=== PATIENT | female | born 1970 | race Caucasian/White ===

== ENCOUNTER 2022-02-16 14:36 | Emergency (ER) | payer MEDICARE, MEDICAID ==
[2022-02-16] MEDS ORDERED: Ketorolac 30 MG/ML SDV IM ONE (15:24)
== END 2022-02-16 16:39 | disposition home or self-care (01) ==
LOC: LL.ED 14:36
DX: M25.561 Pain in right knee (principal); J44.1 Chronic obstructive pulmonary disease with (acute) exacerbation; F17.210 Nicotine dependence, cigarettes, uncomplicated; E66.9 Obesity, unspecified; Z68.41 Body mass index [BMI] 40.0-44.9, adult; Z88.0 Allergy status to penicillin
CPT/HCPCS: 73562-RT; 96372; 99283-25; 99284; J1885

== ENCOUNTER 2023-06-23 12:23 | Inpatient (IN) | payer MEDICARE, MEDICAID ==
[2023-06-23 12:39] LABS: BASOPHILS ABSOLUTE AUTO 0.05 K/uL (0.00-0.20); BASOPHILS PERCENT AUTO 0.4 % (0.0-2.0); EOSINOPHILS ABSOLUTE AUTO 0.09 K/uL (0.00-0.50); EOSINOPHILS PERCENT AUTO 0.8 % (0.0-5.0); HEMATOCRIT 43.2 % (34.0-46.0); HEMOGLOBIN 14.3 g/dL (11.7-15.5); LYMPHOCYTES ABSOLUTE AUTO 1.43 K/uL (0.50-3.50); LYMPHOCYTES PERCENT AUTO 12.2 % (10.0-50.0); MEAN CORPUSCULAR HEMOGLOBIN 29.5 pg (28.2-33.3); MEAN CORPUSCULAR HGB CONC 33.1 g/dL (31.7-36.0); MEAN CORPUSCULAR VOLUME 89.3 fL (84.0-98.0); MONOCYTES ABSOLUTE AUTO 1.41 K/uL (0.00-1.00); NEUTROPHILS ABSOLUTE AUTO 8.75 K/uL (1.40-7.00); NEUTROPHILS PERCENT AUTO 74.6 % (45.0-80.0); PLATELET COUNT,PLT 312 K/uL (150-350); RED BLOOD CELL COUNT 4.84 M/uL (3.77-5.09); RED CELL DISTRIBUTION WIDTH 13.1 % (11.2-14.1); WHITE BLOOD CELL COUNT,WBC 11.7 K/uL (4.0-10.2)
[2023-06-23 12:48] LABS: ALANINE AMINOTRANSFERASE,ALT 14 U/L (12-78); ALBUMIN 3.3 g/dL (3.4-5.0); ALKALINE PHOSPHATASE 129 IU/L (46-116); ASPARTATE AMNIOTRANSFERASE,AST 10 U/L (15-37); BILIRUBIN TOTAL 0.4 mg/dL (0.2-1.0); BLOOD UREA NITROGEN,BUN 6 mg/dL (7-18); CALCIUM 9.3 mg/dL (8.5-10.1); CARBON DIOXIDE,CO2 31.6 mmol/L (21.0-32.0); CHLORIDE,CL 96 mmol/L (98-107); CREATININE 0.81 mg/dL (0.51-1.17); GLUCOSE RANDOM 173 mg/dL (70-99); MAGNESIUM 1.7 mg/dL (1.8-2.4); POTASSIUM,K 3.2 mmol/L (3.5-5.1); PROTEIN TOTAL,TP 8.1 g/dL (6.4-8.2); SODIUM,NA 137 mmol/L (136-145)
[2023-06-23 12:49] LABS: ANION GAP 12.6 meq/L (7-15); ESTIMATED GFR 87 mL/min (>=60)
[2023-06-23] MEDS ORDERED: methylPREDNISolone Sodium Succinate 125 MG/2 ML SDV IVPUSH ONE ×2 (13:00→20:59)
[2023-06-23] MEDS ORDERED: Azithromycin 500 MG in Sodium Chloride 0.9% 250 ML IV ONE (13:00)
[2023-06-23] MEDS ORDERED: Albuterol/Ipratropium 3.0-0.5 MG/3 ML Neb Soln NEB ONE (13:00)
[2023-06-23] MEDS ORDERED: Potassium Bicarbonate/Cit Ac 20 MEQ Effervescent Tab PO ONE (13:01)
[2023-06-23] MEDS ORDERED: Acetaminophen 325 MG Tab PO ONE (13:51)
[2023-06-23] MEDS: Sodium Chloride 0.9% 10 ML Syringe FLUSH PRN ×4 (14:02→15:55)
[2023-06-23 14:10] LABS: CORONAVIRUS COVID-19 NAA NEGATIVE (NEGATIVE); INFLUENZA A NAA NEGATIVE (NEGATIVE); INFLUENZA B NAA NEGATIVE (NEGATIVE); RESPIRATORY SYNCYTIAL VIR NAA NEGATIVE (NEGATIVE)
[2023-06-23 14:27] LABS: O2 DELIVERY DEVICE NASAL CANNULA
[2023-06-23 14:28] LABS: PCO2 ARTERIAL 40 mmHG (35-45); PH,ARTERIAL 7.46 (7.35-7.45)
[2023-06-23] MEDS: Benzonatate 100 MG Cap PO PRN (14:28)
[2023-06-23 14:30] LABS: BASE EXCESS ARTERIAL 5 mmol/L (-2-3); BICARBONATE,ARTERIAL 28.7 mmol/L (22-26); O2 SATURATION ARTERIAL 94 % (95-98); PO2 ARTERIAL 68 mmHG (80-105)
[2023-06-23] MEDS ORDERED: Iopamidol 755 Mg/ML 100 ML Bottle IVPUSH ONE ×2 (15:29→15:30)
[2023-06-23] MEDS ORDERED: LORazepam 2 MG/ML SDV IVPUSH ONE (15:41)
[2023-06-23] MEDS ORDERED: Ondansetron 4 MG/2 ML SDV IVPUSH ONE (15:43)
[2023-06-23 17:26] LABS: APPEARANCE,URINE CLEAR; BILIRUBIN,URINE NEGATIVE (NEGATIVE); COLOR,URINE YELLOW; GLUCOSE,URINE 100 mg/dL (NEGATIVE); KETONES,URINE 40 mg/dL (NEGATIVE); LEUKOCYTE ESTERASE,URINE NEGATIVE (NEGATIVE); NITRITE,URINE NEGATIVE (NEGATIVE); OCCULT BLOOD,URINE SMALL (NEGATIVE); PROTEIN,URINE 100 mg/dL (NEGATIVE)
[2023-06-23 17:27] LABS: BACTERIA,URINE NOT SEEN /HPF (NONE TO FEW); EPITHELIAL CELLS,URINE NOT SEEN /LPF; MUCUS,URINE RARE /LPF (NEGATIVE); WBC,URINE 0-5 /HPF
[2023-06-23] MEDS ORDERED: cefTRIAXone 1 GM in Sodium Chloride 0.9% 100 ML IV ONE (21:02)
[2023-06-23] MEDS ORDERED: Ondansetron 4 MG/2 ML SDV IVPUSH PRN (21:04)
[2023-06-23] MEDS ORDERED: Albuterol/Ipratropium 3.0-0.5 MG/3 ML Neb Soln ONE (22:29)
[2023-06-23] MEDS: Albuterol/Ipratropium 3.0-0.5 MG/3 ML Neb Soln NEB SCH (22:30)
[2023-06-23] MEDS: Acetaminophen 325 MG Tab PO PRN (22:43)
[2023-06-23] MEDS: Ketorolac 15 MG/ML SDV IVPUSH ONE (23:10)
[2023-06-24] MEDS: Nicotine 14 MG/24 Hr Patch TRDERM SCH ×2 (00:19→07:19)
[2023-06-24] MEDS: Albuterol/Ipratropium 3.0-0.5 MG/3 ML Neb Soln NEB SCH ×4 (01:51→19:30)
[2023-06-24] MEDS ORDERED: Ketorolac 15 MG/ML SDV ONE (05:12)
[2023-06-24] MEDS: Sodium Chloride 0.9% 10 ML Syringe FLUSH PRN ×3 (05:14→11:43)
[2023-06-24] MEDS: Ketorolac 15 MG/ML SDV IVPUSH ONE (05:14)
[2023-06-24] MEDS ORDERED: traMADol 50 MG Tab PO PRN (07:04)
[2023-06-24] MEDS: Azithromycin 500 MG in Sodium Chloride 0.9% 250 ML IV SCH (07:17)
[2023-06-24] MEDS: methylPREDNISolone Sodium Succinate 125 MG/2 ML SDV IVPUSH SCH (07:18)
[2023-06-24] MEDS: Enoxaparin 40 MG/0.4 ML Syringe SUBCUT SCH (07:18)
[2023-06-24] MEDS: metFORMIN 500 MG Tab PO SCH ×2 (07:19→18:56)
[2023-06-24] MEDS: Acetaminophen 325 MG Tab PO PRN (07:25)
[2023-06-24 07:56] LABS: CALCIUM 9.4 mg/dL (8.5-10.1); CARBON DIOXIDE,CO2 31.9 mmol/L (21.0-32.0); CREATININE 0.83 mg/dL (0.51-1.17); EST CRCL DRUG DOSING (CG) 65.59 mL/min; POTASSIUM,K 3.9 mmol/L (3.5-5.1)
[2023-06-24 08:04] LABS: BASOPHILS ABSOLUTE AUTO 0.02 K/uL (0.00-0.20); BASOPHILS PERCENT AUTO 0.2 % (0.0-2.0); HEMATOCRIT 41.3 % (34.0-46.0); HEMOGLOBIN 13.5 g/dL (11.7-15.5); LYMPHOCYTES ABSOLUTE AUTO 1.35 K/uL (0.50-3.50); LYMPHOCYTES PERCENT AUTO 13.4 % (10.0-50.0); MEAN CORPUSCULAR HEMOGLOBIN 29.6 pg (28.2-33.3); MEAN CORPUSCULAR HGB CONC 32.7 g/dL (31.7-36.0); MEAN CORPUSCULAR VOLUME 90.6 fL (84.0-98.0); MONOCYTES ABSOLUTE AUTO 0.48 K/uL (0.00-1.00); MONOCYTES PERCENT AUTO 4.8 % (2.0-14.0); NEUTROPHILS ABSOLUTE AUTO 8.23 K/uL (1.40-7.00); NEUTROPHILS PERCENT AUTO 81.6 % (45.0-80.0); PLATELET COUNT,PLT 299 K/uL (150-350); RED BLOOD CELL COUNT 4.56 M/uL (3.77-5.09); RED CELL DISTRIBUTION WIDTH 13.1 % (11.2-14.1); WHITE BLOOD CELL COUNT,WBC 10.1 K/uL (4.0-10.2)
[2023-06-24] MEDS: cefTRIAXone 1 GM in Sodium Chloride 0.9% 100 ML IV SCH (11:43)
[2023-06-24] MEDS ORDERED: Losartan 25 MG Tab PO ONE (16:30)
[2023-06-24] MEDS: Losartan 25 MG Tab PO SCH (16:58)
[2023-06-24] MEDS ORDERED: atorvaSTATin 40 MG Tab PO SCH (20:00)
[2023-06-24] MEDS ORDERED: Glucagon,Human Recombinant 1 MG Vial IM PRN (23:28)
[2023-06-24] MEDS ORDERED: 50% Dextrose in Water 50 ML Syringe IVPUSH PRN (23:28)
[2023-06-25] MEDS: oxyCODONE 5 MG Tab PO PRN ×2 (00:22→23:27)
[2023-06-25] MEDS: Albuterol/Ipratropium 3.0-0.5 MG/3 ML Neb Soln NEB SCH ×4 (01:00→19:28)
[2023-06-25] MEDS ORDERED: LORazepam 0.5 MG Tab PO PRN (04:00)
[2023-06-25] MEDS: Benzonatate 100 MG Cap PO PRN (06:28)
[2023-06-25] MEDS: Azithromycin 500 MG in Sodium Chloride 0.9% 250 ML IV SCH (07:54)
[2023-06-25] MEDS: Enoxaparin 40 MG/0.4 ML Syringe SUBCUT SCH (08:01)
[2023-06-25] MEDS: methylPREDNISolone Sodium Succinate 125 MG/2 ML SDV IVPUSH SCH (08:02)
[2023-06-25] MEDS: Sodium Chloride 0.9% 10 ML Syringe FLUSH PRN ×2 (08:05→11:45)
[2023-06-25] MEDS: Nicotine 14 MG/24 Hr Patch TRDERM SCH (08:09)
[2023-06-25] MEDS: Insulin Regular, Human 100 Units/ML 3 ML Vial SUBCUT SCH ×3 (08:12→17:57)
[2023-06-25] MEDS: Losartan 25 MG Tab PO SCH (08:18)
[2023-06-25 08:33] LABS: BASOPHILS ABSOLUTE AUTO 0.02 K/uL (0.00-0.20); BASOPHILS PERCENT AUTO 0.1 % (0.0-2.0); EOSINOPHILS ABSOLUTE AUTO 0.01 K/uL (0.00-0.50); EOSINOPHILS PERCENT AUTO 0.1 % (0.0-5.0); HEMATOCRIT 42.8 % (34.0-46.0); HEMOGLOBIN 13.6 g/dL (11.7-15.5); LYMPHOCYTES ABSOLUTE AUTO 4.22 K/uL (0.50-3.50); LYMPHOCYTES PERCENT AUTO 22.9 % (10.0-50.0); MEAN CORPUSCULAR HEMOGLOBIN 29.2 pg (28.2-33.3); MEAN CORPUSCULAR HGB CONC 31.8 g/dL (31.7-36.0); MEAN CORPUSCULAR VOLUME 91.8 fL (84.0-98.0); NEUTROPHILS ABSOLUTE AUTO 12.91 K/uL (1.40-7.00); NEUTROPHILS PERCENT AUTO 69.9 % (45.0-80.0); PLATELET COUNT,PLT 348 K/uL (150-350); RED BLOOD CELL COUNT 4.66 M/uL (3.77-5.09); RED CELL DISTRIBUTION WIDTH 13.3 % (11.2-14.1); WHITE BLOOD CELL COUNT,WBC 18.5 K/uL (4.0-10.2)
[2023-06-25 08:40] LABS: CALCIUM 9.5 mg/dL (8.5-10.1); CARBON DIOXIDE,CO2 35.7 mmol/L (21.0-32.0); CREATININE 0.79 mg/dL (0.51-1.17); EST CRCL DRUG DOSING (CG) 68.91 mL/min; MAGNESIUM 1.9 mg/dL (1.8-2.4); POTASSIUM,K 4.1 mmol/L (3.5-5.1)
[2023-06-25 08:41] LABS: ANION GAP 6.4 meq/L (7-15)
[2023-06-25] MEDS: Ketorolac 15 MG/ML SDV IVPUSH SCH ×2 (09:14→19:22)
[2023-06-25] MEDS: cefTRIAXone 1 GM in Sodium Chloride 0.9% 100 ML IV SCH (11:43)
[2023-06-26] MEDS: Albuterol/Ipratropium 3.0-0.5 MG/3 ML Neb Soln NEB SCH ×4 (03:57→20:18)
[2023-06-26 07:33] LABS: BASOPHILS ABSOLUTE AUTO 0.02 K/uL (0.00-0.20); BASOPHILS PERCENT AUTO 0.1 % (0.0-2.0); EOSINOPHILS ABSOLUTE AUTO 0.04 K/uL (0.00-0.50); EOSINOPHILS PERCENT AUTO 0.2 % (0.0-5.0); HEMATOCRIT 41.9 % (34.0-46.0); HEMOGLOBIN 13.5 g/dL (11.7-15.5); LYMPHOCYTES ABSOLUTE AUTO 4.98 K/uL (0.50-3.50); MEAN CORPUSCULAR HEMOGLOBIN 29.4 pg (28.2-33.3); MEAN CORPUSCULAR HGB CONC 32.2 g/dL (31.7-36.0); MEAN CORPUSCULAR VOLUME 91.3 fL (84.0-98.0); MONOCYTES ABSOLUTE AUTO 1.43 K/uL (0.00-1.00); MONOCYTES PERCENT AUTO 8.3 % (2.0-14.0); NEUTROPHILS ABSOLUTE AUTO 10.71 K/uL (1.40-7.00); NEUTROPHILS PERCENT AUTO 62.4 % (45.0-80.0); PLATELET COUNT,PLT 326 K/uL (150-350); RED BLOOD CELL COUNT 4.59 M/uL (3.77-5.09); RED CELL DISTRIBUTION WIDTH 13.1 % (11.2-14.1); WHITE BLOOD CELL COUNT,WBC 17.2 K/uL (4.0-10.2)
[2023-06-26] MEDS: metFORMIN 500 MG Tab PO SCH ×2 (07:38→17:45)
[2023-06-26] MEDS: methylPREDNISolone Sodium Succinate 125 MG/2 ML SDV IVPUSH SCH (07:38)
[2023-06-26] MEDS: Enoxaparin 40 MG/0.4 ML Syringe SUBCUT SCH (07:38)
[2023-06-26] MEDS: Azithromycin 500 MG in Sodium Chloride 0.9% 250 ML IV SCH (07:38)
[2023-06-26] MEDS: Sodium Chloride 0.9% 10 ML Syringe FLUSH PRN ×3 (07:39→20:19)
[2023-06-26] MEDS: Benzonatate 100 MG Cap PO PRN (07:39)
[2023-06-26] MEDS: Ketorolac 15 MG/ML SDV IVPUSH SCH ×2 (07:39→20:19)
[2023-06-26] MEDS: Losartan 25 MG Tab PO SCH (07:40)
[2023-06-26] MEDS: Nicotine 14 MG/24 Hr Patch TRDERM SCH (07:42)
[2023-06-26 07:52] LABS: ANION GAP 7.5 meq/L (7-15); CALCIUM 8.9 mg/dL (8.5-10.1); CARBON DIOXIDE,CO2 33.7 mmol/L (21.0-32.0); CREATININE 0.7 mg/dL (0.51-1.17); EST CRCL DRUG DOSING (CG) 77.77 mL/min; POTASSIUM,K 4.2 mmol/L (3.5-5.1)
[2023-06-26] MEDS: Insulin Regular, Human 100 Units/ML 3 ML Vial SUBCUT SCH ×3 (08:01→18:08)
[2023-06-26 09:41] LABS: PCO2 ARTERIAL,POC 46 mmHg (35-48); PH ARTERIAL,POC 7.4 pH (7.35-7.45); PO2 ARTERIAL,POC 63 mmHg (83-108)
[2023-06-26 09:42] LABS: BASE EXCESS ARTERIAL,POC 4 mmol/L (-2-3); HCO3 ARTERIAL,POC 29.3 mmol/L (22-26); O2 SATURATION ARTERIAL,POC 91.8 % (95-98); TCO2 ARTERIAL,POC 29.2 mmol/L (23-27)
[2023-06-26] MEDS: cefTRIAXone 1 GM in Sodium Chloride 0.9% 100 ML IV SCH (12:04)
[2023-06-26] MEDS ORDERED: Losartan 50 MG Tab PO ONE (13:25)
[2023-06-26] MEDS: guaiFENesin 600 MG Tab.ER PO SCH ×2 (14:09→20:18)
[2023-06-26] MEDS: oxyCODONE 5 MG Tab PO PRN (14:12)
[2023-06-26] MEDS: Acetaminophen 325 MG Tab PO PRN (14:13)
[2023-06-26 14:28] LABS: HEMOGLOBIN A1C 7.7 % (4.3-5.7)
[2023-06-27] MEDS: Albuterol/Ipratropium 3.0-0.5 MG/3 ML Neb Soln NEB SCH ×2 (04:06→07:40)
[2023-06-27] MEDS: Azithromycin 500 MG in Sodium Chloride 0.9% 250 ML IV SCH (07:30)
[2023-06-27] MEDS: Sodium Chloride 0.9% 10 ML Syringe FLUSH PRN ×3 (07:30→10:01)
[2023-06-27] MEDS: methylPREDNISolone Sodium Succinate 125 MG/2 ML SDV IVPUSH SCH (07:32)
[2023-06-27] MEDS: Enoxaparin 40 MG/0.4 ML Syringe SUBCUT SCH (07:36)
[2023-06-27] MEDS: metFORMIN 500 MG Tab PO SCH (07:37)
[2023-06-27] MEDS: guaiFENesin 600 MG Tab.ER PO SCH (07:38)
[2023-06-27] MEDS: Insulin Regular, Human 100 Units/ML 3 ML Vial SUBCUT SCH (07:38)
[2023-06-27 07:49] LABS: BASOPHILS ABSOLUTE AUTO 0.02 K/uL (0.00-0.20); BASOPHILS PERCENT AUTO 0.1 % (0.0-2.0); EOSINOPHILS PERCENT AUTO 0.5 % (0.0-5.0); HEMATOCRIT 42.9 % (34.0-46.0); HEMOGLOBIN 13.7 g/dL (11.7-15.5); LYMPHOCYTES ABSOLUTE AUTO 5.71 K/uL (0.50-3.50); MEAN CORPUSCULAR HGB CONC 31.9 g/dL (31.7-36.0); MEAN CORPUSCULAR VOLUME 90.7 fL (84.0-98.0); MONOCYTES ABSOLUTE AUTO 1.44 K/uL (0.00-1.00); MONOCYTES PERCENT AUTO 7.8 % (2.0-14.0); NEUTROPHILS ABSOLUTE AUTO 11.13 K/uL (1.40-7.00); NEUTROPHILS PERCENT AUTO 60.6 % (45.0-80.0); PLATELET COUNT,PLT 356 K/uL (150-350); RED BLOOD CELL COUNT 4.73 M/uL (3.77-5.09); RED CELL DISTRIBUTION WIDTH 13.2 % (11.2-14.1); WHITE BLOOD CELL COUNT,WBC 18.4 K/uL (4.0-10.2)
[2023-06-27] MEDS: Nicotine 14 MG/24 Hr Patch TRDERM SCH (07:56)
[2023-06-27] MEDS: Ketorolac 15 MG/ML SDV IVPUSH SCH (07:57)
[2023-06-27] MEDS ORDERED: Losartan 25 MG Tab PO SCH (08:00)
[2023-06-27 08:12] LABS: CALCIUM 8.7 mg/dL (8.5-10.1); CARBON DIOXIDE,CO2 32.1 mmol/L (21.0-32.0); CREATININE 0.74 mg/dL (0.51-1.17); EST CRCL DRUG DOSING (CG) 73.56 mL/min; MAGNESIUM 1.7 mg/dL (1.8-2.4); POTASSIUM,K 4.1 mmol/L (3.5-5.1)
[2023-06-27] MEDS: cefTRIAXone 1 GM in Sodium Chloride 0.9% 100 ML IV SCH (09:59)
== END 2023-06-27 11:05 | disposition home or self-care (01) | DRG 193 ==
LOC: LL.ED 12:23 → LL.MS 19:55
PROVIDERS: ADMIT Emergency Medicine; ATTEND Emergency Medicine
DX: J14 Pneumonia due to Hemophilus influenzae (principal); J44.9 Chronic obstructive pulmonary disease, unspecified; J96.01 Acute respiratory failure with hypoxia; Z68.34 Body mass index [BMI] 34.0-34.9, adult; J44.0 Chronic obstructive pulmonary disease with (acute) lower respiratory infection; Z20.822 Contact with and (suspected) exposure to COVID-19; Z79.899 Other long term (current) drug therapy; J44.1 Chronic obstructive pulmonary disease with (acute) exacerbation; F41.9 Anxiety disorder, unspecified; I10 Essential (primary) hypertension; F17.210 Nicotine dependence, cigarettes, uncomplicated; E66.9 Obesity, unspecified; E11.9 Type 2 diabetes mellitus without complications; Z79.4 Long term (current) use of insulin; Z68.35 Body mass index [BMI] 35.0-35.9, adult; Z88.0 Allergy status to penicillin
CPT/HCPCS: 0241U; 36415; 36600; 71275; 80048; 80053; 81001; 82803; 82947; 83036; 83605; 83735; 84484; 85025; 85379; 87040; 87070; 87205; 94640; 96365; 96367; 96375; 99285-25; A9270-GY; J0456; J0696; J1650; J1815-GY; J1885; J2060; J2405; J2930; J3475; J3490; J7050; J7620-GY; Q9967